=== PATIENT | male | born 1945 | race Caucasian/White ===

== ENCOUNTER 2017-01-11 11:44 | Outpatient (CLI) | payer OTHER ==
[2017-01-11] MEDS ORDERED: MIDAZOLAM 2 MG/2 ML VIAL ONE ×2 (12:01→13:17)
[2017-01-11] MEDS ORDERED: fentaNYL 100 MCG/2 ML INJ ONE (12:02)
[2017-01-11] MEDS ORDERED: LORazepam 1 MG TAB ONE (12:19)
[2017-01-11] MEDS ORDERED: NS 1,000 ML IV SCH (18:45)
== END 2017-01-11 15:05 | disposition home or self-care (01) ==
LOC: FIMAGING 11:44
PROVIDERS: ATTEND Physician Assistant
DX: M66.821 Spontaneous rupture of other tendons, right upper arm (principal); M12.821 Other specific arthropathies, not elsewhere classified, right elbow; M25.821 Other specified joint disorders, right elbow
CPT/HCPCS: 73221; 99152; 99153; J2250; J3010

== ENCOUNTER → 2017-01-23 | Outpatient (CLI) | payer OTHER | LOC: FIMAGING 16:17 | PROVIDERS: ATTEND Family Medicine | DX: R22.43 Localized swelling, mass and lump, lower limb, bilateral (principal) ==